=== PATIENT | female | born 1940 | race Caucasian/White ===

== ENCOUNTER 2020-04-09 12:35 | Inpatient (IN) ==
[2020-04-09] MEDS ORDERED: NS 0.9% 1000 ml BAG 1,000 ML IV ONE (13:24)
[2020-04-09 14:11] LABS: ABS Basophils 0.1 10^3/ul (0-0.2); ABS Eosinophils 0.1 10^3/ul (0-0.6); ABS Lymphocytes 1.2 10^3/ul (1.0-4.8); ABS Monocytes 0.5 10^3/ul (0-0.8); ABS Neutrophils 2.5 10^3/ul (1.5-7.7); Hematocrit 29 % (35-47); Hemoglobin 10.6 g/dL (12.0-16.0); Mean Corpuscular HGB Conc 36 g/dL (31-36); Mean Corpuscular Hemoglobin 34 pg (27-31); Mean Corpuscular Volume 95 fL (80-97); Nucleated Red Blood Cells % 0.1; Platelet Count 151 10^3/uL (150-450); Red Blood Count 3.09 10^6 /uL (3.70-4.87); Red Cell Distribution Width 13 % (10-15); White Blood Count 4.4 10^3/uL (3.5-10.8)
[2020-04-09 14:25] LABS: ALT 28 U/L (7-52); AST 27 U/L (13-39); Albumin 3.6 g/dL (3.2-5.2); Albumin/Globulin Ratio 1.2 (1-3); Alkaline Phosphatase 75 U/L (34-104); Anion Gap 6 mmol/L (2-11); Blood Urea Nitrogen 20 mg/dL (6-24); CO2 Carbon Dioxide 23 mmol/L (22-32); Calcium 9.1 mg/dL (8.6-10.3); Chloride 101 mmol/L (101-111); EGFR African American 83.7 (>60); EGFR Non-African American 69.2 (>60); Glucose 429 mg/dL (70-100); Potassium 3.9 mmol/L (3.5-5.0); Sodium 130 mmol/L (135-145); Total Protein 6.6 g/dL (6.4-8.9)
[2020-04-09] MEDS ORDERED: Al Hydrox/Mg Hydrox/Simet LIQ 30 ML UDC PO PRN (14:34)
[2020-04-09] MEDS ORDERED: Dextrose 50% Syringe 50 ml 25 GM/50 ML SYRINGE IV PUSH PRN (14:37)
[2020-04-09] MEDS ORDERED: Vancomycin 1,000 MG in NS 0.9% 250 ml 250 ML IVPB ONE (14:49)
[2020-04-09] MEDS ORDERED: Vancomycin 1,250 MG in NS 0.9% 250 ml 250 ML IVPB ONE (15:00)
[2020-04-09] MEDS ORDERED: Vancomycin per Pharmacy 1 EA NOTE FOLLOW UP SCH (15:00)
[2020-04-09] MEDS ORDERED: ceFAZolin 1 GM ADVAN 1 GM in NS 0.9% 50 ML 50 ML IVPB SCH (15:00)
[2020-04-09 15:34] LABS: % Iron Saturation 42 % (15-55); Iron 140 ug/dL (50-212); Total Iron Binding Capacity 333 mcg/dL (250-450); Transferrin 238 mg/dL (203-362); Unsaturated Iron Binding < 318 ug/dL
[2020-04-09] MEDS: Insulin GLARGINE 100 un/ml 10 ml VIAL SUBCUT SCH (17:05)
[2020-04-10 05:37] LABS: ABS Basophils 0.1 10^3/ul (0-0.2); ABS Eosinophils 0.2 10^3/ul (0-0.6); ABS Lymphocytes 1.3 10^3/ul (1.0-4.8); ABS Monocytes 0.4 10^3/ul (0-0.8); ABS Neutrophils 1.3 10^3/ul (1.5-7.7); Eosinophil % 4.7 %; Hematocrit 27 % (35-47); Hemoglobin 9.8 g/dL (12.0-16.0); Lymphocyte % 41.7 %; Mean Corpuscular HGB Conc 37 g/dL (31-36); Mean Corpuscular Hemoglobin 34 pg (27-31); Mean Corpuscular Volume 94 fL (80-97); Mean Platelet Volume 8.7 fL (7.4-10.4); Nucleated Red Blood Cells % 0.2; Platelet Count 128 10^3/uL (150-450); Red Blood Count 2.86 10^6 /uL (3.70-4.87); Red Cell Distribution Width 13 % (10-15); White Blood Count 3.2 10^3/uL (3.5-10.8)
[2020-04-10] MEDS: Vancomycin 1,000 MG in NS 0.9% 250 ml 250 ML IV SCH ×2 (05:40→16:57)
[2020-04-10 05:58] LABS: BUN/Creatinine Ratio 18.4 (8-20); Calcium 8.2 mg/dL (8.6-10.3); EGFR African American 88.8 (>60); EGFR Non-African American 73.4 (>60); Potassium 3.5 mmol/L (3.5-5.0)
[2020-04-10] MEDS ORDERED: Mirabegron 50 mg ER TAB (NF) PO SCH (09:00)
[2020-04-10] MEDS: Insulin GLARGINE 100 un/ml 10 ml VIAL SUBCUT SCH (09:04)
[2020-04-10 10:54] LABS: C Reactive Protein 12.08 mg/L (<8.01)
[2020-04-10] MEDS: Mupirocin 2% OINT TUBE TOPICAL SCH ×2 (11:35→21:53)
[2020-04-11] MEDS: Vancomycin 1,000 MG in NS 0.9% 250 ml 250 ML IV SCH ×2 (05:35→17:46)
[2020-04-11] MEDS ORDERED: NS 0.9% 1000 ml BAG 1,000 ML IV SCH (07:45)
[2020-04-11] MEDS ORDERED: Pantoprazole VIAL 40 MG VIAL IV SCH (08:00)
[2020-04-11] MEDS: MIRABEGRON 50 MG PO SCH (08:20)
[2020-04-11] MEDS: Mupirocin 2% OINT TUBE TOPICAL SCH ×2 (08:49→23:03)
[2020-04-11] MEDS: Insulin GLARGINE 100 un/ml 10 ml VIAL SUBCUT SCH (08:49)
[2020-04-11 09:09] LABS: ABS Eosinophils 0.1 10^3/ul (0-0.6); ABS Monocytes 0.3 10^3/ul (0-0.8); ABS Neutrophils 1.1 10^3/ul (1.5-7.7); Eosinophil % 5.1 %; Hematocrit 28 % (35-47); Hemoglobin 9.7 g/dL (12.0-16.0); Lymphocyte % 38.3 %; Mean Corpuscular HGB Conc 35 g/dL (31-36); Mean Corpuscular Hemoglobin 33 pg (27-31); Mean Corpuscular Volume 95 fL (80-97); Mean Platelet Volume 8.2 fL (7.4-10.4); Platelet Count 130 10^3/uL (150-450); Red Blood Count 2.93 10^6 /uL (3.70-4.87); Red Cell Distribution Width 13 % (10-15); White Blood Count 2.6 10^3/uL (3.5-10.8)
[2020-04-11 09:27] LABS: BUN/Creatinine Ratio 13.6 (8-20); Calcium 8.3 mg/dL (8.6-10.3); EGFR African American 82.5 (>60); EGFR Non-African American 68.2 (>60); Potassium 3.8 mmol/L (3.5-5.0)
[2020-04-11 10:04] LABS: Folate 12.09 ng/mL (>3.99)
[2020-04-11] MEDS ORDERED: fentaNYL 100 mcg/2 ml 50 MCG/ML VIAL ONE (10:05)
[2020-04-11] MEDS ORDERED: Midazolam 10 mg/10 ml VIAL 1 mg/ml 10 ml VIAL (10 mg) ONE (10:05)
[2020-04-11 14:16] LABS: Hepatitis B Surface Antigen Nonreactive (Nonreactive)
[2020-04-11 14:21] LABS: Hepatitis A Ab IgM Negative (Negative)
[2020-04-11 14:22] LABS: Hepatitis B Core IgM Nonreactive (Nonreactive)
[2020-04-11 14:33] LABS: Hepatitis C Antibody Negative (Negative)
[2020-04-11] MEDS ORDERED: Iodixanol (CONTRAST) 320 MG/ML 100 ML SDV IV SCH (14:52)
[2020-04-11] MEDS ORDERED: Vancomycin Trough Check NOTE FOLLOW UP ONE (16:30)
[2020-04-11 16:56] LABS: EGFR Non-African American 61.2 (>60)
[2020-04-11 17:17] LABS: Vancomycin Trough 11.6 mcg/mL
[2020-04-12] MEDS: Vancomycin 1,000 MG in NS 0.9% 250 ml 250 ML IV SCH ×2 (05:44→17:26)
[2020-04-12 07:06] LABS: ABS Eosinophils 0.1 10^3/ul (0-0.6); ABS Monocytes 0.3 10^3/ul (0-0.8); ABS Neutrophils 1.1 10^3/ul (1.5-7.7); Eosinophil % 4.7 %; Hematocrit 27 % (35-47); Hemoglobin 9.8 g/dL (12.0-16.0); Lymphocyte % 38.7 %; Mean Corpuscular HGB Conc 36 g/dL (31-36); Mean Corpuscular Hemoglobin 34 pg (27-31); Mean Corpuscular Volume 95 fL (80-97); Mean Platelet Volume 8.3 fL (7.4-10.4); Nucleated Red Blood Cells % 0.1; Platelet Count 118 10^3/uL (150-450); Red Blood Count 2.87 10^6 /uL (3.70-4.87); Red Cell Distribution Width 14 % (10-15); White Blood Count 2.6 10^3/uL (3.5-10.8)
[2020-04-12 07:20] LABS: BUN/Creatinine Ratio 13.8 (8-20); C Reactive Protein 4.93 mg/L (<8.01); Calcium 8.1 mg/dL (8.6-10.3); EGFR Non-African American 62.8 (>60); Potassium 3.7 mmol/L (3.5-5.0)
[2020-04-12] MEDS: Insulin GLARGINE 100 un/ml 10 ml VIAL SUBCUT SCH (08:25)
[2020-04-12] MEDS: MIRABEGRON 50 MG PO SCH (08:26)
[2020-04-12] MEDS: Mupirocin 2% OINT TUBE TOPICAL SCH ×2 (11:00→16:15)
[2020-04-13] MEDS: Vancomycin 1,000 MG in NS 0.9% 250 ml 250 ML IV SCH ×2 (05:28→16:56)
[2020-04-13 06:03] LABS: ABS Basophils 0.1 10^3/ul (0-0.2); ABS Eosinophils 0.2 10^3/ul (0-0.6); ABS Lymphocytes 1.2 10^3/ul (1.0-4.8); ABS Monocytes 0.5 10^3/ul (0-0.8); ABS Neutrophils 1.6 10^3/ul (1.5-7.7); Hematocrit 29 % (35-47); Hemoglobin 10.4 g/dL (12.0-16.0); Lymphocyte % 34.4 %; Mean Corpuscular HGB Conc 36 g/dL (31-36); Mean Corpuscular Hemoglobin 34 pg (27-31); Mean Corpuscular Volume 95 fL (80-97); Mean Platelet Volume 8.5 fL (7.4-10.4); Platelet Count 139 10^3/uL (150-450); Red Blood Count 3.04 10^6 /uL (3.70-4.87); Red Cell Distribution Width 14 % (10-15); White Blood Count 3.6 10^3/uL (3.5-10.8)
[2020-04-13] MEDS: Insulin GLARGINE 100 un/ml 10 ml VIAL SUBCUT SCH (08:37)
[2020-04-13] MEDS: MIRABEGRON 50 MG PO SCH (08:38)
[2020-04-13] MEDS: Mupirocin 2% OINT TUBE TOPICAL SCH ×3 (08:44→16:56)
[2020-04-14] MEDS: Vancomycin 1,000 MG in NS 0.9% 250 ml 250 ML IV SCH (05:06)
[2020-04-14 05:38] LABS: INR 1.05 (0.82-1.09)
[2020-04-14] MEDS: MIRABEGRON 50 MG PO SCH (08:38)
[2020-04-14] MEDS: Insulin GLARGINE 100 un/ml 10 ml VIAL SUBCUT SCH (08:39)
[2020-04-14] MEDS ORDERED: NFT: Empagliflozin (NF) 25 MG TABLET PO SCH (09:00)
[2020-04-14] MEDS: Mupirocin 2% OINT TUBE TOPICAL SCH ×2 (10:56)
[2020-04-14 11:58] VITALS: BP 139/57
[2020-04-14] MEDS ORDERED: Vancomycin Trough Check NOTE FOLLOW UP ONE (16:30)
[2020-04-14 17:12] LABS: Mitochondria M2 Antibody <0.1 U
[2020-04-14 22:22] LABS: Tissue Transglutaminase IgA Ab <1.2 U/mL
[2020-04-14 23:08] LABS: Immunoglobulin A 174 mg/dL (61 - 356)
== END 2020-04-14 11:55 | disposition home or self-care (01) | DRG 603 ==
LOC: MED 12:35 → ED 12:35 → MED 16:26
PROVIDERS: ADMIT Internal Medicine; ATTEND Student in an Organized Health Care Education/Training Program